=== PATIENT | female | born 1980 | race Caucasian/White ===

== ENCOUNTER 2023-08-25 04:29 | Emergency (ER) | payer OTHER ==
[~2023-08-25] VITALS: Ht 162.6 cm; Wt 65.8 kg
[2023-08-25 04:34] VITALS: BP 147/96; TEMP 98.4; O2SAT 98
== END 2023-08-25 04:56 | disposition left against medical advice (07) ==
LOC: ER 04:31
DX: F20.9 Schizophrenia, unspecified (principal); F17.200 Nicotine dependence, unspecified, uncomplicated; Z59.00 Homelessness unspecified; Z53.21 Procedure and treatment not carried out due to patient leaving prior to being seen by health care provider